=== PATIENT | female | born 1950 | race American Indian/Alaskan Native ===

== ENCOUNTER 2020-02-29 05:32 | Day surgery (SDC) | payer MEDICARE ==
[2020-02-29] MEDS ORDERED: ASPIRIN EC 325 MG TAB PO ONE (06:55)
[2020-02-29 07:21] LABS: Eosinophils # (Auto) 0.1 K/mm3 (0.0-0.4); Eosinophils % (Auto) 2.5 % (0.0-4.3); Hematocrit 34.4 % (30.3-42.9); Hemoglobin 11.5 gm/dl (10.1-14.3); Lymphocytes # (Auto) 1.2 K/mm3 (1.2-5.4); Mean Corpuscular HGB Conc 33 % (30-34); Mean Corpuscular Volume 88 fl (79-97); Monocytes # (Auto) 0.4 K/mm3 (0.0-0.8); Monocytes % (Auto) 9.3 % (0.0-7.3); Platelet Count 257 K/mm3 (140-440); Red Blood Count 3.91 M/mm3 (3.65-5.03); Red Cell Distribution Width 15.6 % (13.2-15.2)
[2020-02-29] MEDS: SODIUM CHLORIDE 0.9% 500 ML 500 ML IV SCH ×4 (07:27→11:35)
[2020-02-29 07:31] LABS: INR 0.94 (0.87-1.13)
[2020-02-29 07:32] LABS: Partial Thromboplastin Time 29.4 Sec. (24.2-36.6)
[2020-02-29 07:35] LABS: Hemolysis Index 103
[2020-02-29 07:41] LABS: BUN/Creatinine Ratio TNR; Blood Urea Nitrogen TNR mg/dL (7-17); Calcium TNR mg/dL (8.4-10.2)
[2020-02-29 08:12] LABS: Calcium 9.7 mg/dL (8.4-10.2)
[2020-02-29] MEDS ORDERED: HEPARIN 10,000 UNITS/10 ML VIAL ONE (08:31)
[2020-02-29] MEDS ORDERED: HEPARIN/NS 5000 UNIT/500ML 1,000 ML IR ONE (08:31)
[2020-02-29] MEDS ORDERED: VERAPAMIL 5 MG/2 ML INJ ONE (08:32)
[2020-02-29] MEDS ORDERED: fentaNYL 100 MCG/2 ML INJ ONE (09:34)
[2020-02-29] MEDS ORDERED: MIDAZOLAM 2 MG/2 ML INJ ONE (09:34)
[2020-02-29] MEDS: NITROGLYCERIN SYRINGE 3 ML ONE ×2 (10:35→10:47)
[2020-02-29] MEDS: LIDOCAINE (2%) 20 MG/1 ML VIAL 20 ML MDV INFILTRATI ONE ×2 (10:45→10:53)
--- NOTE | 2020-02-29 12:24 | Cardiac Catherization Report ---
REASON FOR PROCEDURE: Abnormal thallium stress test. INDICATION FOR PROCEDURE: The patient was noted to have mild chronic kidney disease with a creatinine of 1.5. She is also reported to have a single kidney. We had an extensive discussion regarding higher than normal risk of contrast nephropathy, which the patient understood and consented to proceed. Prior to the procedure, we maintained several hours of intravenous normal saline hydration. The cardiac catheterization was completed with less than 30 mL of Visipaque contrast. PROCEDURES: 1. Left heart catheterization. 2. Selective left and right coronary angiography. 3. Sedation time, start 1040 hours, end 1103 hours. DESCRIPTION OF PROCEDURE: The patient was prepped and draped in a sterile fashion after informed consent. We initially entered the right radial artery using Seldinger technique followed by placement of a 6-[place] hydrophilic sheath. Routine radial cocktail was administered via the sheath. Retrograde cardiac catheterization could not be performed due to inability to transition the guidewire from the right subclavian into the ascending aorta. 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 We then withdrew the wires and the catheter from the right radial sheath and turned our attention to the right femoral approach. The right femoral artery was then entered, followed by placement of another 6-[place] sheath. Selective left and right coronary angiography was then performed using the right and left Kay catheters. The catheters were then withdrawn, the right femoral arterial sheath was removed and hemostasis achieved using an Angio-Seal device. The right radial sheath was then removed using manual compression. The patient was returned to the postprocedure unit in stable condition. There were no complications. FINDINGS: HEMODYNAMICS: Ascending aortic pressure was 150/71. Left ventricular catheterization was not performed and there was no left ventricular angiography due to the need to reduce intravenous contrast load. CORONARY ANGIOGRAPHY: The left main coronary artery was angiographically normal. The left anterior descending artery and its diagonal branches were angiographically normal. The circumflex artery and its obtuse marginal branches were angiographically normal. The right coronary artery was dominant and similarly angiographically normal. LIMITED RIGHT SUBCLAVIAN ANGIOGRAPHY: Angiography of the right subclavian demonstrated a chronic occlusion of atrophy of the brachiocephalic artery. There was compensatory dilatation of the right carotid and right internal mammary arteries. CONCLUSION: 1. Angiographically normal coronary arteries. 2. Total contrast used for the procedure less than 30 mL. 3. 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 RECOMMENDATION: The patient will be recommended for risk factor modification, echocardiography for left ventricular function and valvular function assessment, Vascular Surgery evaluation and followup of the apparent atrophy of the brachiocephalic trunk. JOB# [id number] CA/NTS
[2020-02-29 15:41] VITALS: BP 139/79
== END 2020-02-29 15:45 | disposition home or self-care (01) ==
LOC: CATHLABREC 05:32 → EDBD 05:32 → CATHLABREC 15:45
PROVIDERS: ATTEND Internal Medicine Cardiovascular Disease
DX: R94.39 Abnormal result of other cardiovascular function study (principal); I70.8 Atherosclerosis of other arteries; I11.0 Hypertensive heart disease with heart failure; I50.9 Heart failure, unspecified; J45.909 Unspecified asthma, uncomplicated; G47.30 Sleep apnea, unspecified; K21.9 Gastro-esophageal reflux disease without esophagitis; M19.90 Unspecified osteoarthritis, unspecified site; F41.9 Anxiety disorder, unspecified; D64.9 Anemia, unspecified; Z11.59 Encounter for screening for other viral diseases; Z98.49 Cataract extraction status, unspecified eye; Z90.5 Acquired absence of kidney; Z96.653 Presence of artificial knee joint, bilateral; Z79.899 Other long term (current) drug therapy; Z90.710 Acquired absence of both cervix and uterus; Z88.8 Allergy status to other drugs, medicaments and biological substances; Z98.890 Other specified postprocedural states
CPT/HCPCS: 36415; 80048; 85025; 85610; 85730; 93005; 93458; 99156; 99157; C1760; C1769; C1894; J1644; J2250; J3010; J7040; U0003; 96360; 96361; Q9967